=== PATIENT | female | born 1995 | race Caucasian/White ===

== ENCOUNTER 2017-04-24 02:53 | Emergency (ER) | payer SELFPAY ==
[2017-04-24] MEDS ORDERED: Naloxone* 0.4 MG/ML 1 ML VIAL IV ONE (03:01)
[2017-04-24] MEDS ORDERED: NS 0.9% 1000 ML* 1,000 ML IV ONE (03:01)
[2017-04-24 04:09] LABS: Hematocrit 41 % (35-47); Mean Corpuscular HGB Conc 34 g/dl (31-36); Mean Corpuscular Hemoglobin 29 pg (27-31); Mean Corpuscular Volume 87 fL (80-97); Mean Platelet Volume 9 um3 (7.4-10.4); Red Blood Count 4.76 10^6/ul (4.0-5.4); Red Cell Distribution Width 12 % (10.5-15); White Blood Count 11.5 10^3/ul (3.5-10.8)
[2017-04-24 04:10] LABS: Add Diff/Slide Review? Slide Review Added; Comments Flag Yes
[2017-04-24 04:22] LABS: ALT 13 U/L (7-52); AST 17 U/L (13-39); Albumin 4.3 g/dL (3.2-5.2); Alkaline Phosphatase 47 U/L (34-104); Anion Gap 9 mmol/L (2-11); BUN/Creatinine Ratio 14.8 (8-20); Blood Urea Nitrogen 12 mg/dL (6-24); CO2 Carbon Dioxide 24 mmol/L (22-32); Calcium 8.8 mg/dL (8.6-10.3); Chloride 107 mmol/L (101-111); Creatine Kinase 64 U/L (10-223); EGFR African American 115.9 (>60); EGFR Non-African American 90.1 (>60); Globulin 2.9 g/dL (2-4); Glucose 132 mg/dL (70-100); Magnesium 2.1 mg/dL (1.9-2.7); Sodium 140 mmol/L (133-145); Total Protein 7.2 g/dL (6.4-8.9)
[2017-04-24 04:23] LABS: Acetaminophen < 15 mcg/mL; Alcohol 334 mg/dL (<10); Salicylate < 2.50 mg/dL (<30)
[2017-04-24 04:24] LABS: Troponin I 0.01 ng/mL (<0.04)
[2017-04-24 04:37] LABS: TSH (Thyroid Stimulating Horm) 2.84 mcIU/mL (0.34-5.60)
--- NOTE | 2017-04-24 08:03 | RAD ---
HISTORY: Unresponsive, intoxication COMPARISONS: None VIEWS: 1: frontal portable view of the chest at 3:22 AM FINDINGS: LINES AND TUBES: None. CARDIOMEDIASTINAL SILHOUETTE: The cardiomediastinal silhouette is normal for portable technique. PLEURA: The costophrenic angles are sharp. No pleural abnormalities are noted. LUNG PARENCHYMA: The lungs are clear. ABDOMEN: The upper abdomen is clear. There is no subphrenic gas. BONES AND SOFT TISSUES: No bone or soft tissue abnormalities are noted. IMPRESSION: NO ACTIVE CARDIOPULMONARY DISEASE.
--- NOTE | 2017-04-24 08:09 | RAD ---
HISTORY: Facial trauma, unresponsive COMPARISONS: None TECHNIQUE: Multiple contiguous axial CT scans were obtained of the head without intravenous contrast. FINDINGS: HEMORRHAGE/INFARCT: There is no hemorrhage or acute infarct. MASSES/SHIFT: There is no mass or shift. EXTRA-AXIAL SPACES: There are no extra-axial fluid collections. SULCI AND VENTRICLES: The sulci and ventricles are normal in size and position for the patient's stated age. CEREBRUM: There are no focal parenchymal abnormalities. BRAINSTEM: There are no focal parenchymal abnormalities. CEREBELLUM: There are no focal parenchymal abnormalities. VESSELS: The vessels are grossly normal. PARANASAL SINUSES: There is a small air fluid level of the left maxillary sinus. ORBITS: The orbits are unremarkable. BONES AND SOFT TISSUE: There is a small hematoma of the left frontal supraorbital scalp. OTHER: None IMPRESSION: NO ACUTE INTRACRANIAL PATHOLOGY.
--- NOTE | 2017-04-24 08:11 | RAD ---
HISTORY: Facial trauma, unresponsive COMPARISONS: None TECHNIQUE: Multiple contiguous axial CT scans were obtained of the cervical spine without intravenous contrast, with coronal and sagittal multiplanar reformations. FINDINGS: Evaluation is slightly limited by patient motion artifact.. BRAIN: The visualized brain is unremarkable CENTRAL CANAL: Evaluation of the central canal is limited on CT technique; however, there is no obvious canalicular mass or epidural hemorrhage. ALIGNMENT: There is straightening of the cervical lordosis. VERTEBRAL BODIES: The odontoid process is intact. The atlantoaxial intervals are symmetric. The vertebral bodies are normal in attenuation, without fracture. JOINTS: There is no subluxation or dislocation MUSCULATURE: Unremarkable INTERVERTEBRAL DISCS: The intervertebral discs are relatively preserved in height. AXIAL IMAGES: C2-C3: There is no osseous neural foraminal narrowing or central canal stenosis. C3-C4: There is no osseous neural foraminal narrowing or central canal stenosis. C4-C5: There is no osseous neural foraminal narrowing or central canal stenosis. C5-C6: There is no osseous neural foraminal narrowing or central canal stenosis. C6-C7: There is no osseous neural foraminal narrowing or central canal stenosis. C7-T1: There is no osseous neural foraminal narrowing or central canal stenosis. SOFT TISSUES: The visualized soft tissues of the neck are unremarkable. The prevertebral fat stripe is preserved. A nasal airway is in place OTHER: None. IMPRESSION: NO ACUTE OSSEOUS INJURY TO THE CERVICAL SPINE
--- NOTE | 2017-04-24 08:13 | RAD ---
HISTORY: Facial trauma, unresponsive COMPARISONS: None TECHNIQUE: Multiple contiguous axial CT scans were obtained of the face without intravenous contrast, with coronal and sagittal multiplanar reformations. FINDINGS: Evaluation is slightly limited by patient motion artifact. BONES: There is no displaced fracture or dislocation. The orbital rim is intact. The zygomatic arch is intact. The pterygoid plates are intact. ORBITS: The globes are round. The optic nerves are symmetric. The extraocular musculature is normal. There is no post septal or intraconal inflammatory change. There is no retrobulbar hematoma. PARANASAL SINUSES: There is an air-fluid level within the left maxillary sinus. There is mucosal thickening of the right maxillary sinus. BRAIN AND SOFT TISSUE: A nasal airway is in place. There is a small substernal hematoma of the left frontal supraorbital scalp. OTHER: None. IMPRESSION: 1. NO FACIAL FRACTURE. 2. MILD SINUS MUCOSAL INFLAMMATORY DISEASE, WITH AN AIR-FLUID LEVEL IN THE LEFT MAXILLARY SINUS. IN THE CORRECT CLINICAL SETTING, THIS MAY REPRESENT ACUTE SINUSITIS
--- NOTE | 2017-04-24 09:28 | ED ---
Chris Moy Thomas, scribed for Lori Hernández MD on 04/24/17 at 0315 . Substance Abuse/Use - HPI Summary HPI Summary: The patient is an unidentified individual of unknown age who is BIBA after she was found intoxicated at a [facility]. She is unresponsive in the ED to painful stimuli. She consumed an unknown amount of ETOH and it is unknown whether or not she used other drugs. Her pupils are 4mm and reactive and both eyes are deviated to the right. She has a hematoma under the left eyebrow. LEVEL 5 CAVEAT: HPI LIMITED BY UNRESPONSIVE PATIENT - History Of Current Complaint Chief Complaint: EDSubstanceAbuse Stated Complaint: ALCOHOL CONSUMPTION Time Seen by Provider: 04/24/17 03:01 Hx Obtained From: EMS Hx From Patient Unobtainable Due To: Other - Unresponsive patient Hx Last Menstrual Period: unknown LMP or if PG Onset/Duration of Drug/ETOH Abuse: Hours Ingestion History: Type/Name Of Drug - ETOH and perhaps other drugs Severity Initially: Severe Severity Currently: Severe Character: Stuporous, Other - Unresponsive Aggravating Factor(s): Nothing Alleviating Factor(s): Nothing PMH/Surg Hx/FS Hx/Imm Hx Previously Healthy: No - LEVEL 5 CAVEAT: PMH LIMITED BY UNRESPONSIVE PATIENT Infectious Disease History: Unable to Obtain/Confirm Infectious Disease History: Denies: Traveled Outside the [place] in Last 30 Days - Family History Known Family History: Positive: Other - unable to obtain, level 5 caveat due to unresponsive pt - Social History Alcohol Use: tonight Smoking Status (MU): Unknown if Ever Smoked Review of Systems - ROS Summary Review of Systems Summary: LEVEL 5 CAVEAT: ROS LIMITED BY UNRESPONSIVE PATIENT Neurological: Other - Unresponsive All Other Systems Reviewed And Are Negative: No Physical Exam - Summary Physical Exam Summary: LEVEL 5 CAVEAT: PHYSICAL EXAM LIMITED BY UNRESPONSIVE PATIENT Triage Information Reviewed: Yes Vital Signs On Initial Exam: Initial Vitals Temp Pulse Resp BP Pulse Ox 97.1 F 73 16 128/78 98 04/24/17 02:53 04/24/17 02:53 04/24/17 02:53 04/24/17 02:53 04/24/17 02:53 Vital Signs Reviewed: Yes Appearance: Positive: No Pain Distress, Well-Nourished, Ill-Appearing Skin: Positive: Warm, Skin Color Reflects Adequate Perfusion, Other - There is a hematoma under the left eyebrow. Eyes: Positive: Conjunctiva Clear, Other: - Pupils are 4mm and reactive. Both eyes are deviated to the right. ENT: Positive: Normal ENT inspection Neck: Positive: Supple Respiratory/Lung Sounds: Positive: Clear to Auscultation, Breath Sounds Present , Other - No respiratory distress Cardiovascular: Positive: RRR, Pulses are Symmetrical in both Upper and Lower Extremities, Other - Brisk cap refill. Negative: Murmur Abdomen Description: Positive: Nontender, Soft Bowel Sounds: Positive: Present Musculoskeletal: Positive: Other - pt lying still, not moving extremities unless painful stimuli Neurological: Negative: Alert, Oriented to Person Place, Time Diagnostics - Vital Signs Vital Signs Temp Pulse Resp BP Pulse Ox 04/24/17 02:53 97.1 F 73 16 128/78 98 - Laboratory Lab Results: Lab Results 04/24/17 04/24/17 04/24/17 Range/Units 03:09 03:09 03:09 WBC 11.5 H (3.5-10.8) 10^3/ul RBC 4.76 (4.0-5.4) 10^6/ul Hgb 14.0 (12.0-16.0) g/dl Hct 41 (35-47) % MCV 87 (80-97) fL MCH 29 (27-31) pg MCHC 34 (31-36) g/dl RDW 12 (10.5-15) % Plt Count 221 (150-450) 10^3/ul MPV 9 (7.4-10.4) um3 Neut % (Auto) 44.5 (38-83) % Lymph % (Auto) 45.3 (25-47) % Hardin % (Auto) 7.7 (1-9) % Eos % (Auto) 1.8 (0-6) % Baso % (Auto) 0.7 (0-2) % Absolute Neuts (auto) 5.1 (1.5-7.7) 10^3/ul Absolute Lymphs (auto) 5.2 H (1.0-4.8) 10^3/ul Absolute Monos (auto) 0.9 H (0-0.8) 10^3/ul Absolute Eos (auto) 0.2 (0-0.6) 10^3/ul Absolute Basos (auto) 0.1 (0-0.2) 10^3/ul Absolute Nucleated RBC 0 10^3/ul Nucleated RBC % 0 INR (Anticoag Therapy) (0.89-1.11) Sodium 140 (133-145) mmol/L Potassium 3.0 L (3.5-5.0) mmol/L Chloride 107 (101-111) mmol/L Carbon Dioxide 24 (22-32) mmol/L Anion Gap 9 (2-11) mmol/L BUN 12 (6-24) mg/dL Creatinine 0.81 (0.51-0.95) mg/dL Est GFR ( Amer) 115.9 (>60) Est GFR (Non-Af Amer) 90.1 (>60) BUN/Creatinine Ratio 14.8 (8-20) Glucose 132 H (70-100) mg/dL POC Glucose (mg/dL) (70-100) mg/dL Lactic Acid 2.0 (0.5-2.0) mmol/L Calcium 8.8 (8.6-10.3) mg/dL Magnesium 2.1 (1.9-2.7) mg/dL Total Bilirubin 0.30 (0.2-1.0) mg/dL AST 17 (13-39) U/L ALT 13 (7-52) U/L Alkaline Phosphatase 47 (34-104) U/L Total Creatine Kinase 64 (10-223) U/L Troponin I 0.01 (<0.04) ng/mL Total Protein 7.2 (6.4-8.9) g/dL Albumin 4.3 (3.2-5.2) g/dL Globulin 2.9 (2-4) g/dL Albumin/Globulin Ratio 1.5 (1-3) TSH 2.84 (0.34-5.60) mcIU/mL Beta HCG, Quant < 0.60 mIU/mL Salicylates < 2.50 (<30) mg/dL Acetaminophen < 15 mcg/mL Serum Alcohol 334 H (<10) mg/dL 04/24/17 04/24/17 Range/Units 03:09 03:10 WBC (3.5-10.8) 10^3/ul RBC (4.0-5.4) 10^6/ul Hgb (12.0-16.0) g/dl Hct (35-47) % MCV (80-97) fL MCH (27-31) pg MCHC (31-36) g/dl RDW (10.5-15) % Plt Count (150-450) 10^3/ul MPV (7.4-10.4) um3 Neut % (Auto) (38-83) % Lymph % (Auto) (25-47) % Hardin % (Auto) (1-9) % Eos % (Auto) (0-6) % Baso % (Auto) (0-2) % Absolute Neuts (auto) (1.5-7.7) 10^3/ul Absolute Lymphs (auto) (1.0-4.8) 10^3/ul Absolute Monos (auto) (0-0.8) 10^3/ul Absolute Eos (auto) (0-0.6) 10^3/ul Absolute Basos (auto) (0-0.2) 10^3/ul Absolute Nucleated RBC 10^3/ul Nucleated RBC % INR (Anticoag Therapy) 0.95 (0.89-1.11) Sodium (133-145) mmol/L Potassium (3.5-5.0) mmol/L Chloride (101-111) mmol/L Carbon Dioxide (22-32) mmol/L Anion Gap (2-11) mmol/L BUN (6-24) mg/dL Creatinine (0.51-0.95) mg/dL Est GFR ( Amer) (>60) Est GFR (Non-Af Amer) (>60) BUN/Creatinine Ratio (8-20) Glucose (70-100) mg/dL POC Glucose (mg/dL) 148 H (70-100) mg/dL Lactic Acid (0.5-2.0) mmol/L Calcium (8.6-10.3) mg/dL Magnesium (1.9-2.7) mg/dL Total Bilirubin (0.2-1.0) mg/dL AST (13-39) U/L ALT (7-52) U/L Alkaline Phosphatase (34-104) U/L Total Creatine Kinase (10-223) U/L Troponin I (<0.04) ng/mL Total Protein (6.4-8.9) g/dL Albumin (3.2-5.2) g/dL Globulin (2-4) g/dL Albumin/Globulin Ratio (1-3) TSH (0.34-5.60) mcIU/mL Beta HCG, Quant mIU/mL Salicylates (<30) mg/dL Acetaminophen mcg/mL Serum Alcohol (<10) mg/dL Result Diagrams: 04/24/17 03:09 04/24/17 03:09 Lab Statement: Any lab studies that have been ordered have been reviewed, and results considered in the medical decision making process. - Radiology CXR Xray Interpretation: No Acute Changes - No acute disease. Radiology Interpretation Completed By: ED Physician - CT CT Head CT Interpretation: No Acute Changes - Small subcutaneous hematoma without skull fracture or intracranial hemorrhage. ED physician has read this report and agrees. CT Interpretation Completed By: Radiologist CT C-Spine CT Interpretation: No Acute Changes - No fracture. ED physician has read this report and agrees. CT Interpretation Completed By: Radiologist CT Maxillofacial CT Interpretation: No Acute Changes - No fracture. ED physician has reviewed this report and agrees. CT Interpretation Completed By: Radiologist Course/Dx - Course Assessment/Plan: The patient is an unidentified individual of unknown age who is BIBA after she was found intoxicated at a [facility]. She is unresponsive in the ED to painful stimuli. In the ED course the patient was given IV fluids and Narcan. Bloodwork was obtained with results earlier in this report. Serum alcohol 334. CXR, CT Head, CT C-Spine, and CT Maxillofacial are all negative for fracture. CT Head does reveal a small subcutaneous hematoma. ED physician has reviewed these report and agrees. The patient is signed out to Dr. Price at shift change pending ETOH metabolism and awaiting disposition. - Diagnoses Differential Diagnosis/HQI/PQRI: Positive: Alcohol Abuse, Metabolic Disorder Provider Diagnoses: Alcohol intoxication, Altered mental status - Critical Care Time Critical Care Time: 30-74 min - 30 mins Discharge - Discharge Plan Condition: Fair Disposition: OTHER Discharge Disposition Comment: Sign out to Dr. Price, 04/24/17, 0700 at shift change. The documentation as recorded by the Chris abrams Thomas accurately reflects the service I personally performed and the decisions made by , Lori Hernández MD.
[2017-04-24 13:03] VITALS: BP 102/57
--- NOTE | 2017-04-24 13:14 | CONSULT ---
Consult Consult: Ms. Henna Mcgowan presented completely comatose and unresponsive to pain. She was worked up medically as there were signs of trauma. When she awakened she was able to identify herself as Carmela Stevenslucyashley. She was kept here until she was clinically sober and her BA was below .01 by the numbers. She found a sober ride home and was D/C'd in stable condition with a diagnosis of alcohol intoxication.
== END 2017-04-24 13:02 | disposition home or self-care (01) ==
LOC: EDBD → ED 02:53
DX: F10.129 Alcohol abuse with intoxication, unspecified (principal); R41.82 Altered mental status, unspecified; Y90.8 Blood alcohol level of 240 mg/100 ml or more
CPT/HCPCS: 36415; 70450; 70486; 71010; 72125; 80053; 80320; 80329; 82550; 83605; 83735; 84443; 84484; 84702; 85025; 85610; 99285; G0480; J2310